=== PATIENT | female | born 1995 | race Caucasian/White ===

== ENCOUNTER 2017-12-02 17:23 | Emergency (ER) | payer OTHER ==
--- NOTE | 2017-12-02 18:48 | EDPHY ---
H & P Time Seen by Provider: 12/02/17 18:18 HPI/ROS: CHIEF COMPLAINT: Anxiety,"sinus infection" HISTORY OF PRESENT ILLNESS: Patient is a 22-year-old female who presents emergency department with 3-4 weeks of sinus congestion and possible infection. Patient states her symptoms started after flying. She describes bilateral maxillary sinus congestion. She has also had mild stuffiness in her ears bilaterally. She describes intermittent episodes of mild dizziness. She has a mild headache. No neck stiffness or photophobia. Patient states she has a history of anxiety but this is worsened greatly due to her sinus issues. No chest pain or shortness of breath. She has appoint with the primary care physician tomorrow. REVIEW OF SYSTEMS: My complete review of systems is negative except as mentioned in the HPI. Past Medical/Surgical History: Includes anxiety, sinusitis, IUD in place Smoking Status: Current some day smoker Physical Exam: 36.4, 135/91, 70, 18, 96% on room air GENERAL: Tearful due to anxiety, alert. HEENT: Eyes normal to inspection, normal pharynx, no signs of dehydration. Mild maxillary sinus tap tenderness to palpation. TMs negative bilaterally NECK: No thyromegaly, no lymphadenopathy, supple. RESPIRATORY: Clear to auscultation bilaterally, no rales, rhonchi or wheezing. CVS: Regular rate and rhythm, no rubs, murmurs, or gallops. ABDOMEN: Soft, nontender, nondistended, no organomegaly. BACK: Normal to inspection, no CVA tenderness. SKIN: Normal color, no rash, warm, dry. No pallor. EXTREMITIES: No pedal edema, no calf tenderness, no Homans sign or cords, no joint swelling. NEURO/PSYCH: Alert and oriented x3, anxious and tearful, normal motor sensory exam. No obvious cranial nerve deficit. Constitutional: Initial Vital Signs Temperature (C) 36.4 C 12/02/17 17:31 Heart Rate 78 12/02/17 17:31 Respiratory Rate 18 12/02/17 17:31 Blood Pressure 135/91 H 12/02/17 17:31 O2 Sat (%) 96 12/02/17 17:31 O2 Delivery Mode Room Air Allergies/Adverse Reactions: amoxicillin Allergy (Verified 12/02/17 17:34) Home Medications: Medication Instructions Recorded Azithromycin 250 mg PO DAILY #4 tablet 12/02/17 LORazepam [Ativan (*)] 1 mg PO TID #7 tab 12/02/17 Ondansetron Odt [Zofran Odt 4 mg 4 mg PO Q4PRN PRN #4 tab 12/02/17 (*)] Zyrtec 12/02/17 Medical Decision Making ED Course/Re-evaluation: In the emergency department I discussed possible etiologies with the patient. I answered all her questions. The patient states she has an allergy to amoxicillin. Patient was given azithromycin. She will be given Claritin-D. Due to her anxiety she was given 1 tablet of Ativan in the emergency department and was given a prescription of 7 tablets of Ativan. She will follow up with the primary care physician tomorrow. She was given warnings prior to leaving. Differential Diagnosis: My differential includes but is not limited to sinusitis, viral illness, otitis media, anxiety, pneumonia, bronchitis, bacteremia, sepsis, meningitis, CVA, dissection Departure - Departure Disposition: Home, Routine, Self-Care Clinical Impression: Anxiety Sinusitis Qualifiers: Sinusitis location: maxillary Chronicity: acute Recurrence: non-recurrent Qualified Code(s): J01.00 - Acute maxillary sinusitis, unspecified Condition: Good Instructions: Sinusitis (ED), Anxiety (ED) Additional Instructions: Take your entire course of antibiotics. Return to the emergency department with increasing pain, fever, vomiting or any other concerns. Referrals: Bonny Cowart MD [Primary Care Provider] - 1 day without fail Prescriptions: Azithromycin 250 mg PO DAILY #4 tablet LORazepam [Ativan (*)] 1 mg PO TID #7 tab Ondansetron Odt [Zofran Odt 4 mg (*)] 4 mg PO Q4PRN PRN #4 tab PRN Reason: For Nausea & Vomiting
[2017-12-02] MEDS ORDERED: AZITHROMYCIN 250 MG TAB PO ONE (18:49)
[2017-12-02 18:58] VITALS: BP 128/78
== END 2017-12-02 18:58 | disposition home or self-care (01) ==
DX: F41.9 Anxiety disorder, unspecified (principal); J01.00 Acute maxillary sinusitis, unspecified; F17.200 Nicotine dependence, unspecified, uncomplicated

== ENCOUNTER 2017-12-03 23:18 | Emergency (ER) | payer OTHER ==
--- NOTE | 2017-12-03 23:50 | CPEKG ---
Heart Rate: 84 RR Interval: 714 P-R Interval: 176 QRSD Interval: 88 QT Interval: 384 QTC Interval: 454 P [place]: 80 QRS [place]: 78 T Wave [place]: 62 EKG Severity - NORMAL ECG - EKG Impression: SINUS RHYTHM Electronically Signed By: Santi Adamson 04-Dec-2017 16:51:54
--- NOTE | 2017-12-04 00:28 | EDPHY ---
H & P Stated Complaint: chest pain, numbness in left arm Time Seen by Provider: 12/03/17 23:34 HPI/ROS: Chief complaint: Chest pain History of present illness: This is a 22-year-old female who presents to the emergency department for evaluation of chest pain. She reports she has had pain for the last few days. She has had soreness to the left side of her chest. Symptoms have been slowly worsening. She does state the discomfort is worse with deep breathing. However there is no cough for shortness of breath. She does state her left arm feels somewhat numb. She was seen in this emergency room last night and started on a Z-Jatin for suspected sinus infection. She has been taking those medications as prescribed. She does use lorazepam for anxiety which does help her symptoms somewhat. Review of systems: A 10 point review of systems was obtained and other than described above was negative - Personal History LMP (Females 10-55): IUD In Place - Medical/Surgical History Hx Asthma: No Hx Chronic Respiratory Disease: No Hx Diabetes: No Hx Cardiac Disease: No Hx Renal Disease: No Hx Cirrhosis: No Hx Alcoholism: No Hx HIV/AIDS: No Hx Splenectomy or Spleen Trauma: No Other PMH: Sinusitis. - Social History Smoking Status: Current some day smoker - Physical Exam Exam: General Appearance: Alert, nontoxic. Eyes: Pupils equal and round no pallor or injection. ENT, Mouth: Mucous membranes moist. Respiratory: There are no retractions, lungs are clear to auscultation. Cardiovascular: Regular rate and rhythm. Gastrointestinal: Abdomen is soft and non tender, no masses, bowel sounds normal. Neurological: Alert and oriented x4. Strength and sensation intact and symmetrical. Skin: Warm and dry, no rashes. Musculoskeletal: Neck is supple non tender. Extremities are symmetrical, full range of motion. Psychiatric: Patient is oriented X 3, there is no agitation. Constitutional: Initial Vital Signs Temperature (C) 37 C 12/03/17 23:24 Heart Rate 89 12/03/17 23:24 Respiratory Rate 20 12/03/17 23:24 Blood Pressure 153/70 H 12/03/17 23:24 O2 Sat (%) 97 12/03/17 23:24 O2 Delivery Mode Room Air Allergies/Adverse Reactions: amoxicillin Allergy (Verified 12/03/17 23:24) Home Medications: Medication Instructions Recorded Azithromycin 250 mg PO DAILY #4 tablet 12/02/17 LORazepam [Ativan (*)] 1 mg PO TID #7 tab 12/02/17 Ondansetron Odt [Zofran Odt 4 mg 4 mg PO Q4PRN PRN #4 tab 12/02/17 (*)] Zyrtec 12/02/17 Medical Decision Making - Diagnostics Imaging Results: Imaging Impressions Chest X-Ray 12/03/17 23:41 Impression: Normal chest x-ray. Imaging: I viewed and interpreted images myself ED Course/Re-evaluation: Patient seen under the supervision of my secondary supervising physician Dr. Marley Kim. Patient presents for chest pain. Evaluation is begun, care of patient turned over to Dr. Lorenzo the end of shift. Differential Diagnosis: Included but not limited to anxiety, musculoskeletal pain, pulmonary infections , pneumo or hemothorax, cardiac dysrhythmia, pulmonary embolism, unlikely ACS nor great vessel disease - Data Points Laboratory Results: 12/04/17 12/03/17 12/03/17 00:15 00:00 00:00 WBC RBC Hgb Hct MCV MCH MCHC RDW Plt Count MPV Neut % (Auto) Lymph % (Auto) [place] % (Auto) Eos % (Auto) Baso % (Auto) Nucleat RBC Rel Count Absolute Neuts (auto) Absolute Lymphs (auto) Absolute Monos (auto) Absolute Eos (auto) Absolute Basos (auto) Absolute Nucleated RBC Immature Gran % Immature Gran # D-Dimer Pending Pending Sodium Potassium Chloride Carbon Dioxide Anion Gap BUN Creatinine Estimated GFR Glucose Calcium Beta HCG, Qual Pending 12/03/17 12/03/17 00:00 00:00 WBC Pending RBC Pending Hgb Pending Hct Pending MCV Pending MCH Pending MCHC Pending RDW Pending Plt Count Pending MPV Pending Neut % (Auto) Pending Lymph % (Auto) Pending [place] % (Auto) Pending Eos % (Auto) Pending Baso % (Auto) Pending Nucleat RBC Rel Count Pending Absolute Neuts (auto) Pending Absolute Lymphs (auto) Pending Absolute Monos (auto) Pending Absolute Eos (auto) Pending Absolute Basos (auto) Pending Absolute Nucleated RBC Pending Immature Gran % Pending Immature Gran # Pending D-Dimer Sodium Pending Potassium Pending Chloride Pending Carbon Dioxide Pending Anion Gap Pending BUN Pending Creatinine Pending Estimated GFR Pending Glucose Pending Calcium Pending Beta HCG, Qual Departure - Departure Disposition: Home, Routine, Self-Care Clinical Impression: Chest pain Qualifiers: Chest pain type: unspecified Qualified Code(s): R07.9 - Chest pain, unspecified Condition: Good Instructions: Chest Pain (ED) Additional Instructions: Follow-up with your primary care doctor this week for continued evaluation and care Continue your medications as prescribed If symptoms worsen or new symptoms develop return to the emergency room for recheck Referrals: Bonny Cowart MD [Primary Care Provider] - As per Instructions
[2017-12-04 00:34] LABS: PLATELET COUNT 198 10^3/uL (150-400)
[2017-12-04 00:52] VITALS: BP 130/69
== END 2017-12-04 00:52 | disposition home or self-care (01) ==
DX: R07.9 Chest pain, unspecified (principal); F17.200 Nicotine dependence, unspecified, uncomplicated